=== PATIENT | male | born 1985 | race Caucasian/White ===

== ENCOUNTER 2021-09-28 22:15 | Emergency (ER) | payer OTHER ==
[~2021-09-28] VITALS: Ht 182.9 cm; Wt 104.3 kg
[~2021-09-28 22:15] MED LIST: CEPH500 PO; SULTRIDS PO
== END 2021-09-29 00:48 | disposition home or self-care (01) ==
LOC: ER 22:15 → EDBD 22:15 → ER 09-29 00:48
DX: J45.901 Unspecified asthma with (acute) exacerbation (principal)
CPT/HCPCS: 93005; 93010; 94640; 99285-25; A9270; J1100